=== PATIENT | male | born 1985 | race Caucasian/White ===

== ENCOUNTER 2021-10-20 10:14 | Outpatient (CLI) | payer BC, SELFPAY ==
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
== END 2021-10-20 10:15 | disposition home or self-care (01) ==
LOC: US 10:16
PROVIDERS: PCP Physician Assistant Medical; Visit Provider Physician Assistant Medical
DX: M79.672 Pain in left foot (principal); M25.521 Pain in right elbow
CPT/HCPCS: 93971

== ENCOUNTER 2022-05-11 14:24 | Outpatient (CLI) | payer BC, SELFPAY ==
[2022-05-11 21:47] LABS: Albumin* 4.9 g/dL (3.3-5.0)
[2022-05-11 21:50] LABS: Bilirubin Direct* 0.2 mg/dL (0.0-0.5); Bilirubin Total* 1.5 mg/dL (0.1-1.5); Total Protein* 8.3 g/dL (6.0-8.3)
[2022-05-11 21:51] LABS: Alanine Aminotransferase* 38 U/L (4-50); Alkaline Phosphatase* 90 U/L (40-150); Aspartate Amino Transferase* 35 U/L (12-35); Lipase* 336 U/L (23-300)
== END 2022-05-11 14:25 | disposition home or self-care (01) ==
PROVIDERS: PCP Physician Assistant Medical; Visit Provider Family Medicine
DX: I10 Essential (primary) hypertension (principal); R10.9 Unspecified abdominal pain; E03.9 Hypothyroidism, unspecified
CPT/HCPCS: 80076; 83690; 84443

== ENCOUNTER 2022-05-14 15:00 | Outpatient (CLI) | payer BC, SELFPAY ==
--- NOTE | 2022-05-14 16:00 | CRLHL7_ITS ---
For Patients: As a result of the Century Cures Act, medical imaging exams and procedure reports are released immediately into your electronic medical record. You may view this report before your referring provider. If you have questions, please contact your health care provider. INDICATION: Right upper quadrant COMPARISON: none TECHNIQUE: Real time menard scale imaging and color Doppler analysis was performed of the right upper quadrant. FINDINGS: The patient`s liver is of normal size and has mildly increased echogenicity. There is a normal appearance of the hepatic IVC and proximal abdominal aorta. There is no evidence of ascites. The gallbladder is of normal size and there is no evidence of intraluminal stones or sludge. The gallbladder wall measures 3 mm in thickness. The common bile duct is of normal size and measures 4 mm in diameter at the level of the rona hepatis. The pancreas appears normal. There is no evidence of a stone or hydronephrosis within the right kidney. The right kidney measures cm in length. IMPRESSION: Mild hepatic steatosis. Remainder normal. Dictated by Lukas Bañuelos MD @ 05/17/2022 10:14:54 AM (Electronically Signed)
== END 2022-05-14 15:01 | disposition home or self-care (01) ==
LOC: US 15:02
PROVIDERS: PCP Family Medicine; Visit Provider Family Medicine
DX: R10.9 Unspecified abdominal pain (principal); K76.0 Fatty (change of) liver, not elsewhere classified
CPT/HCPCS: 76705

== ENCOUNTER 2022-05-27 16:29 | Outpatient (CLI) | payer BC, SELFPAY | END 2022-05-27 16:30 | disposition home or self-care (01) | PROVIDERS: PCP Family Medicine; Visit Provider Family Medicine | DX: R10.9 Unspecified abdominal pain (principal); I10 Essential (primary) hypertension | CPT/HCPCS: 83690 ==